=== PATIENT | female | born 1955 | race Two or more races ===

== ENCOUNTER 2021-04-04 05:55 | Day surgery (SDC) | payer OTHER ==
[~2021-04-04 05:55] MED LIST: ALLERGY RELIE15.8 ML NASAL; ATORVASTATIN CA10 MG PO; GABAPENTIN100 M2 PO; LEVOTHYROXINE25 MCG PO; PEPCID AC10 MG PO; PLAVIX75 MG PO; SINGULAIR10 MG PO; TOPAMAX50 MG PO; TYLENOL325 MG PO
== END 2021-04-04 13:35 | disposition home or self-care (01) ==
LOC: CIR.AMB 05:55
PROVIDERS: ATTEND Surgery
DX: D24.2 Benign neoplasm of left breast (principal)